=== PATIENT | female | born 1960 | race Caucasian/White ===

== ENCOUNTER → 2018-07-22 | Outpatient (CLI) | payer MEDICARE, OTHER ==
[2018-07-22 14:16] LABS: HCT 40.9 % (34.0-46.0); HGB 13.7 gm/dL (11.4-16.0); MCH 32.8 pg (25.0-35.0); MCHC 33.5 g/dL (31.0-37.0); Mean Platelet Volume 6.6; Platelet Count 336 k/uL (150-450); RBC 4.18 m/uL (3.80-5.40); RDW 11.7 % (11.5-15.5); WBC 8.6 k/uL (3.8-10.6)
[2018-07-22 14:26] LABS: Calcium 9.5 mg/dL (8.4-10.2); Total Bilirubin 0.3 mg/dL (0.2-1.3); Total Protein 6.9 g/dL (6.3-8.2)
[2018-07-22 14:36] LABS: Appearance,Urine Clear (Clear); Bilirubin,Urine Negative (Negative); Blood,Urine Negative (Negative); Color,Urine Light Yellow; Glucose,Urine (UA) Negative (Negative); Ketones,Urine Negative (Negative); Leukocyte Esterase,Urine Negative (Negative); Nitrite,Urine Negative (Negative); Protein,Urine Negative (Negative); Specific Gravity,Urine 1.007 (1.001-1.035); Urobilinogen,Urine <2.0 mg/dL (<2.0)
[2018-07-22 14:39] LABS: Prothrombin Time 10.2 sec (9.0-12.0)
== END | disposition home or self-care (01) ==
LOC: LABPAT 13:28
PROVIDERS: ATTEND Orthopaedic Surgery
DX: Z01.812 Encounter for preprocedural laboratory examination (principal); Z01.818 Encounter for other preprocedural examination
CPT/HCPCS: 36415; 80053; 81003; 85027; 85610; 85730; 87070; 93005

== ENCOUNTER 2018-07-28 05:31 | Inpatient (IN) | payer MEDICARE, OTHER ==
[2018-07-21 11:10] VITALS: BMI 28.3
[~2018-07-28 05:31] MED LIST: ACETAMINOPHEN TAB 500 MG TAB PO ONE; HYDROmorphone 0.5 MG/0.5 ML SYRINGE IVP PRN; LIDOCAINE 1% 20 ML VIAL (10MG/ML) FOR IV START INTRADERMA PRN; ONDANSETRON 4 MG/2 ML VIAL IVP ONE; TRANEXAMIC ACID 1,000 MG in SODIUM CHLORIDE 0.9% 50 ML IVPB ONE; ceFAZolin IN SWFI 2 GM/20 ML SYRINGE IVP ONE
[2018-07-28] MEDS ORDERED: ROPIVACAINE 246.25 MG, EPINEPHrine 0.5 MG, KETOROLAC 30 MG, cloNIDine HCL/PF 80 MCG, WA... MISCELLANE ONE ×5 (06:06)
[2018-07-28] MEDS ORDERED: LACTATED RINGERS 1,000 ML IV ONE ×2 (06:18→08:08)
[2018-07-28] MEDS ORDERED: MAGNESIUM HYDROXIDE 2,400 MG/10 ML CUP PO PRN (06:58)
[2018-07-28] MEDS ORDERED: HYDROcodone/APAP 5-325MG 1 EACH TAB PO PRN (06:58)
[2018-07-28] MEDS ORDERED: HYDROmorphone 1 MG/ML 1 ML SYRINGE IVP PRN ×3 (06:58)
[2018-07-28] MEDS ORDERED: ONDANSETRON 4 MG/2 ML VIAL IVP PRN (06:58)
[2018-07-28] MEDS ORDERED: DIAZEPAM 5 MG TAB PO PRN (06:58)
[2018-07-28] MEDS ORDERED: NALOXONE 0.4 MG/ML 1 ML VIAL IV PRN (06:58)
[2018-07-28] MEDS ORDERED: PHENYLEPHRINE-0.9% NACL SYG 1 MG/10 ML SYRINGE ONE (07:00)
[2018-07-28] MEDS ORDERED: SODIUM CHLORIDE 0.9% 100 ML BAG ONE (07:00)
[2018-07-28] MEDS ORDERED: SODIUM CHLORIDE 0.9% IRRIG 1,000 ML BTL IRRIGATION ONE (07:00)
[2018-07-28] MEDS ORDERED: MIDAZOLAM 2 MG/2 ML VIAL ONE (07:00)
[2018-07-28] MEDS ORDERED: ePHEDrine SULFATE/0.9% NACL/PF 50 MG/5 ML SYRINGE IV ONE (07:00)
[2018-07-28] MEDS ORDERED: HEPARIN SODIUM,PORCINE 10,000 UNIT/ML 1 ML VIAL ONE (07:00)
[2018-07-28] MEDS ORDERED: TRANEXAMIC ACID 1,000 MG/10 ML VIAL ONE (07:00)
[2018-07-28] MEDS ORDERED: PROPOFOL 10 MG/ML 20 ML VIAL IV ONE (07:00)
[2018-07-28] MEDS ORDERED: fentaNYL (PF) 50 MCG/ML 2 ML AMP ONE (07:00)
[2018-07-28] MEDS ORDERED: ceFAZolin 3,000 MG in SODIUM CHLORIDE 0.9% IRRIGATIO 3,000 ML IRRIGATION ONE (07:32)
--- NOTE | 2018-07-28 08:34 | P.OP ---
Date of Procedure: 07/28/18 Preoperative Diagnosis: Severe osteoarthritis right hip Postoperative Diagnosis: Severe osteoarthritis right hip Procedure(s) Performed: Right total hip arthroplasty with a direct anterior approach Implants: Brewer and nephew Polarstem size 3 standard Brewer [employer] Nephew R3, 3 hole acetabular shell, 50 mm Brewer [employer]hew reflection 6.5 mm cancellus screw, 20 mm 2 Brewer [employer] Nephew R3, XLPE 20 acetabular liner Brewer [employer] Nephew Oxinium femoral head 32 m, +0 All components were press-fit. The articulation is Oxinium on polyethylene. Anesthesia: spinal Surgeon: Ben Judge Wet Sander #1: Radha Pineda Estimated Blood Loss (ml): 150 (60 mL returned with Cell Saver) Pathology: other (Femoral head) Condition: stable Disposition: PACU Indications for Procedure: After failure of conservative treatment we discussed the surgical and nonsurgical treatment options at length. Patient wishes to proceed with a total hip arthroplasty with a direct anterior approach. Complications specific to this procedure were discussed at length, including but not limited to infection, leg length discrepancy, dislocation, and nerve injury. Patient is aware of all these complications and informed consent was obtained Operative Findings: The operative findings are consistent with severe osteoarthritis of the right hip Description of Procedure: Patient was seen and evaluated in the preoperative area, consent was reviewed, and the surgical site was marked with a skin marker. Patient was then brought to the operating room and given prophylactic antibiotics intravenously. 1 g of Tranexamic acid was also given. A spinal anesthetic was administered by the anesthesia department. The patient was then placed on the [place] table with the bony prominences well-padded. The hip area was then prepped and draped in usual sterile fashion. A universal timeout was then performed, which confirmed the patient's name, surgical site, ALLERGIES, and procedure being performed. Next the incision site was located at 1 cm distal and 1 cm lateral to the anterior superior iliac spine. The skin and subcutaneous tissues were sharply incised. Incision was carefully dissected down to the fascia overlying the tensor fascia jahaira muscle. This fascia was then incised in line with the incision. Next, using blunt finger dissection, the tensor fascia jahaira muscle was dissected off its investing fascia. The muscle was then carefully retracted laterally with a cobra retractor over the lateral neck of the femur. Next, the circumflex vessels were identified and cauterized using the AquaMantis device. The anterior hip capsule was then exposed. The capsule was then opened and an inverted T fashion. Cobra retractors were then placed intracapsularly. The proximal femur was then visualized. The femoral neck was then osteotomized appropriate level above the lesser trochanter. Small amount of traction was placed with the [place] table. A small wedge of bone was then removed from the remaining femoral head. Next, using a corkscrew femoral head was easily removed from the acetabulum. On gross visual inspection, the femoral head had complete loss of articular cartilage in multiple periarticular osteophytes. Attention was then turned to the acetabulum. the acetabulum was exposed and any remaining labrum was excised. Sequential reaming of the acetabulum was performed using fluoroscopic guidance. When the appropriate size was reached, a trial was then placed. The position and fit of the trial was checked with fluoroscopy. The trial was then removed. Then, using fluoroscopic guidance, the final implant was impacted at 20 of anteversion and 40 of abduction, and fully seated in the acetabulum. 2 screws were then placed in the acetabulum. Again fluoroscopy was used to check position of the screws. Next, the liner was then impacted, with a 20 elevated liner located in the anterior superior quadrant. Component locking was confirmed. Attention was then directed to the femur. With the aid of the [place] table, the femur was externally rotated to approximately 130, extended, and abducted under the opposite leg. A side hook was then placed under the proximal femur, and the side hook elevator was used to elevate the proximal femur. Retractors were then placed. A capsular release was performed, as well as a release of the conjoined tendon, which afforded excellent visualization of the proximal femur. Next, a box osteotome was used to lateralize the proximal femur. A hands parter was then used to locate the femoral canal. Sequential broaching was then performed with appropriate size which afforded excellent fixation in the proximal femur. A trial was then placed with appropriate head and neck, and the hip was gently reduced with the aid of the [place] table. Fluoroscopy was then used to check position of the components, as well as to ensure equal leg lengths. The hip was then gently dislocated and the trials were then removed. Final implants were then impacted and the hip was again reduced. Final fluoroscopic x-rays confirmed that the components were in anatomic position, as well as equal leg lengths. The hip was also taken through range of motion, and found to be stable. The hip was then copiously irrigated with antibiotic solution with pulsatile lavage. The hip was then irrigated with Irrisept solution. The soft tissues were then injected with a ropivacaine solution, which consisted of 246.25 mg of ropivacaine, 0.5 mg of epinephrine, 30 mg of Toradol, 80 g of clonidine, and 48.45 mL of sterile water, for a total of 100 mL of fluid injected. A second dose of 1 g of Tranexamic acid was also given. the fascia was then closed with 2-0 strata fix suture. The subcutaneous tissue was closed with 3-0 Vicryl. The subcuticular tissue was closed with 3-0 strata fix suture. The skin was then closed with Dermabond glue and a sterile silver dressing. The patient was then transferred to the recovery room in stable condition. The stylist assistant RASHAAD Sanders was required due to the complexity of surgery, and the need for skilled salesperson surgical appliances for positioning, draping, exposure, retraction, and closure of the wound.
--- NOTE | 2018-07-28 08:57 | XR ---
Limited right hip HISTORY: Right Hip arthroplasty 2 intraoperative C-arm images document the procedure.
[2018-07-28] MEDS: MORPHINE SULFATE 4 MG/ML SYRINGE IVP ONE ×2 (09:00→09:20)
--- NOTE | 2018-07-28 09:07 | XR ---
Right hip HISTORY: Status post right hip arthroplasty Single frontal view of the right hip Patient is status post right hip arthroplasty. There is anatomic alignment. Lucency in the soft tissu es is compatible with postop state. IMPRESSION: Orthopedic follow-up.
--- NOTE | 2018-07-28 09:08 | FL ---
Fluoroscopy HISTORY: Hip arthroplasty on the right 28 seconds fluoroscopy time supplied to the referring clinician. 2 intraoperative C-arm images docum ent the procedure. See dictated report from orthopedic surgery.
[2018-07-28] MEDS: LACTATED RINGERS 1,000 ML IV SCH (10:36)
[2018-07-28] MEDS: SODIUM CHLORIDE 0.9% 1,000 ML IV SCH (10:37)
[2018-07-28] MEDS ORDERED: SODIUM CHLORIDE 0.9% 500 ML IV ONE (11:40)
[2018-07-28] MEDS ORDERED: ALBUTEROL NEBULIZED 2.5 MG/3 ML INHALATION PRN (12:16)
--- NOTE | 2018-07-28 12:22 | P.CONS ---
History of Present Illness - Reason for Consult Consult date: 07/28/18 Medical management - History of Present Illness This is a 57-year-old female patient of Dr. Gardner with a past medical history of heart failure, probable diastolic, COPD, hypertension, alcoholic cirrhosis of the liver, tobacco use and dependence. Patient has been brought into the hospital in the care of Dr. Ben Judge status post anterior approach right total hip arthroplasty completed today. They're searching the blood pressure reading of 79/48 patient was asymptomatic and repeat was 112/72. Patient to be monitored and no fluid bolus at this time. She denies having any chest pain, lightheadedness. She does complain of her right leg hurting in her back is sore. She does have a hoarse sounding voice which she states is chronic. She also complains of nausea. Patient did have a stress test done by her anchorman, Dr. Camarena, prior to this procedure which apparently was normal. Review of Systems All systems: negative Constitutional: Denies chills, Denies fever Eyes: denies blurred vision, denies pain Ears, nose, mouth and throat: Denies headache, Denies sore throat, Denies vertigo Cardiovascular: Denies chest pain, Denies decreased exercise tolerance, Denies dyspnea on exertion, Denies leg edema, Denies lightheadedness, Denies shortness of breath, Denies syncope Respiratory: Denies congestion, Denies cough, Denies cough with sputum, Denies dyspnea, Denies excessive sputum, Denies hemoptysis, Denies home oxygen, Denies wheezing Gastrointestinal: Reports nausea, Denies abdominal pain, Denies diarrhea, Denies vomiting Genitourinary: Denies dysuria, Denies hematuria, Denies urgency, Denies urinary frequency Musculoskeletal: Reports low back pain, Denies frequent falls, Denies gait dysfunction, Denies myalgias Musculoskeletal: right: hip pain Integumentary: Denies pruritus, Denies rash Neurological: Denies numbness, Denies weakness Psychiatric: Denies anxiety, Denies depression Endocrine: Denies fatigue, Denies weight change Past Medical History Past Medical History: Heart Failure, COPD, GERD/Reflux, Hypertension, Liver Disease, Osteoarthritis (OA), Pneumonia, Renal Disease Additional Past Medical History / Comment(s): CHF 2011, R/T EXCESS ETOH HX; CIRRHOSIS AND KIDNEY DISEASE (STAGE 1). HX POLYP IN ESOPHAGUS. HAD STRESS TEST TODAY, F/U W/ CV 07/22/18. History of Any Multi-Drug Resistant Organisms: VRE Year Discovered:: 2011 MDRO Source:: UNSURE Past Surgical History: Orthopedic Surgery Additional Past Surgical History / Comment(s): COLONOSCOPY, EGD, right total hip anterior approach Past Anesthesia/Blood Transfusion Reactions: No Reported Reaction Past Psychological History: Anxiety, Depression Smoking Status: Current every day smoker Past Alcohol Use History: Rare Additional Past Alcohol Use History / Comment(s): SMOKING SINCE AGE 13, UP TO 1 PPD, DOWN TO 1/2 PPD NOW. HX HEAVY ETOH USE AFTER SON'S 2001. Patient has a nebulizer home but she does not use it. No CPAP machine. She does not use any device for ambulation. Past Drug Use History: Marijuana Additional Drug Use History / Comment(s): OCC USE ONLY - Past Family History Mother Brother(s) Family Medical History: Musculoskeletal Disorder Additional Family Medical History / Comment(s): Mother from MUSCULAR DYSTROPHY Father Additional Family Medical History / Comment(s): Father with history of heart failure, stroke and hypertension. Brother(s) Additional Family Medical History / Comment(s): Patient has 2 brothers and one from muscular dystrophy. One has been diagnosed with paranoid schizophrenia. Son(s) Additional Family Medical History / Comment(s): Patient has 2 sons and one from suicide and the other one has no medical problems. Patient does not have any daughters. Medications and Allergies Home Medications Medication Instructions Recorded Confirmed Type ALPRAZolam [Xanax] 0.5 mg PO BID PRN 07/21/18 07/28/18 History Albuterol Inhaler [Ventolin Hfa 1 - 2 puff INHALATION RT-Q6H PRN 07/21/18 History Inhaler] Calcium Carbonate/Vitamin D3 1 tab PO BID 07/21/18 07/28/18 History [Calcium 600-Vit D3 200 Tablet] Carvedilol [Coreg] 3.125 mg PO BID 07/21/18 07/28/18 History Cyclobenzaprine HCl 10 mg PO TID PRN 07/21/18 07/28/18 History Fluticasone Propionate 2 spray EA NOSTRIL DAILY 07/21/18 07/28/18 History Lisinopril [Zestril] 5 mg PO BID 07/21/18 07/28/18 History Magnesium Oxide [Mag-Ox] 400 mg PO DAILY 07/21/18 07/28/18 History Ranitidine HCl [Zantac] 150 mg PO BID 07/21/18 07/28/18 History Spironolactone [Aldactone] 25 mg PO BID 07/21/18 07/28/18 History Allergies Allergy/AdvReac Type Severity Reaction Status Date / Time ibuprofen AdvReac AVOIDS D/T Verified 07/21/18 10:25 KIDNEYS Physical Exam Vitals: Vital Signs Temp Pulse Pulse Resp BP Pulse Ox 07/28/18 09:16 63 18 112/60 97 07/28/18 09:00 55 L 18 109/60 97 07/28/18 08:41 97 F L 61 16 111/58 100 07/28/18 05:59 97.8 F 76 18 109/66 95 Intake and Output 07/27/18 07/28/18 07/28/18 22:59 06:59 14:59 Intake Total 200 1501 Output Total 150 Balance 200 1351 Intake: IV 200 1501 Output: Estimated Blood Loss 150 Gen: This is a 57-year-old overweight female. She is in bed and appears to be somewhat uncomfortable secondary to nausea and pain. No respiratory distress is noted. HEENT: Head is atraumatic, normocephalic. Pupils equal, round. Sclerae is anicteric. NECK: Supple. No JVD. No lymphadenopathy. No thyromegaly. LUNGS: Clear to auscultation. No wheezes or rhonchi. No intercostal retractions. HEART: Regular rate and rhythm. No murmur. ABDOMEN: Soft. Bowel sounds are present. No masses. No tenderness. EXTREMITIES: No pedal edema. No calf tenderness. Small dressing in place to the right hip. No breakthrough bleeding or drainage. NEUROLOGICAL: Patient is awake, alert and oriented x3. Cranial nerves 2 through 12 are grossly intact. Assessment and Plan Plan: 1. Osteoarthritis status post right total hip arthroplasty, anterior approach. Continue current management, PT and OT per orthopedics. Patient is on aspirin 325 mg twice daily for DVT prophylaxis. Incentive spirometry to reduce incidence of atelectasis and hospital-acquired pneumonia. 2. Tobacco use and dependence. Nicotine patch. 3. History of heart failure, most likely diastolic. Spironolactone will be started tomorrow. 4. History of hypertension. Patient is on lisinopril 5 mg twice daily and Coreg 3.125 mg twice daily. These will be resumed with parameters. 5. History of cirrhosis of the liver. Patient is on Aldactone 25 mg twice daily. 6. Gastroesophageal reflux disease. Continue Zantac or equivalent. 7. COPD, stable without exacerbation. Continue albuterol inhaler as needed. 8. Generalized anxiety disorder. Continue Xanax or 0.5 mg twice daily as needed. Discharge plan: Return home, most likely tomorrow. Impression and plan of care have been directed as dictated by the signing physician. Dejah Vera nurse practitioner acting as scribe for signing physician.
[2018-07-28] MEDS: NICOTINE 14MG/24HR PATCH TRANSDERM SCH (14:03)
[2018-07-28] MEDS: hydrOXYzine PAMOATE 25 MG CAP PO PRN ×2 (14:09→20:50)
[2018-07-28] MEDS: HYDROcodone/APAP 5-325MG 1 EACH TAB PO PRN (14:09)
[2018-07-28] MEDS: ceFAZolin IN SWFI 2 GM/20 ML SYRINGE IVP SCH ×2 (15:41→23:10)
[2018-07-28] MEDS: CARVEDILOL 3.125 MG TAB PO SCH (17:51)
[2018-07-28] MEDS: ASPIRIN 325 MG TAB PO SCH (20:50)
[2018-07-28] MEDS: SENNOSIDES-DOCUSATE SODIUM 1 EACH TAB PO SCH (20:50)
[2018-07-28] MEDS: ALPRAZolam 0.5 MG TAB PO PRN (23:11)
[2018-07-29] MEDS: HYDROcodone/APAP 5-325MG 1 EACH TAB PO PRN ×2 (02:19→08:15)
[2018-07-29] MEDS: hydrOXYzine PAMOATE 25 MG CAP PO PRN ×4 (02:19→19:24)
[2018-07-29 07:52] LABS: Basophils % (A) 0 %; Eosinophils # (A) 0.1 k/uL (0-0.7); Eosinophils % (A) 1 %; HCT 34.8 % (34.0-46.0); HGB 11.4 gm/dL (11.4-16.0); Lymphocytes # (A) 0.9 k/uL (1.0-4.8); Lymphocytes % (A) 11 %; MCH 32.9 pg (25.0-35.0); MCHC 32.9 g/dL (31.0-37.0); MCV 99.8 fL (80.0-100.0); Mean Platelet Volume 6.5; Monocytes # (A) 0.4 k/uL (0-1.0); Monocytes % (A) 6 %; Neutrophils % (A) 80 %; Platelet Count 298 k/uL (150-450); RBC 3.48 m/uL (3.80-5.40); RDW 11.9 % (11.5-15.5); WBC 7.5 k/uL (3.8-10.6)
[2018-07-29] MEDS: NICOTINE 14MG/24HR PATCH TRANSDERM SCH (08:14)
[2018-07-29] MEDS: FLUTICASONE 50MCG/SPRAY NASAL 16GM EA NOSTRIL SCH (08:14)
[2018-07-29] MEDS: LISINOPRIL 5 MG TAB PO SCH ×2 (08:14→21:13)
[2018-07-29] MEDS: ASPIRIN 325 MG TAB PO SCH ×2 (08:14→21:13)
[2018-07-29] MEDS: CARVEDILOL 3.125 MG TAB PO SCH ×2 (08:15→17:58)
[2018-07-29] MEDS: PANTOPRAZOLE 40 MG TABLET PO SCH (08:25)
[2018-07-29] MEDS ORDERED: HYDROcodone/APAP 7.5-325MG 1 EACH TAB PO PRN (08:58)
--- NOTE | 2018-07-29 09:02 | P.PN ---
Subjective Progress Note Date: 07/29/18 This is a 57-year-old female who is status post right total hip arthroplasty. This is postoperative day #1. Patient is seen and evaluated at bedside with Dr. Ben Judge. Patient does complain of pain today, but states that she has been up and walking throughout the night. Patient denies any fever/chills, numbness, weakness, tingling, abdominal pain, shortness of breath or chest pain. Objective - Vital Signs Vital signs: Vital Signs Temp 99 F 07/29/18 07:00 Pulse 85 07/29/18 07:00 Resp 16 07/29/18 07:00 BP 121/66 07/29/18 07:00 Pulse Ox 97 07/29/18 07:00 Intake & Output 07/28/18 07/29/18 07/29/18 18:59 06:59 18:59 Intake Total 2181 1890 240 Output Total 150 Balance 2031 1890 240 Intake: IV 1501 Intake, IV Titration 520 1040 Amount Sodium Chloride 0.9% 1, 520 1040 000 ml @ 65 mls/hr IV . [id number] [facility] Rx#:[id number] Oral 160 850 240 Output: Estimated Blood Loss 150 Other: Voiding Method Bedside Commode # Voids 1 4 - Exam Vital signs are stable. Patient is in no acute distress and is alert and oriented 3. Calf is soft and nontender to palpation. Dressing is clean, dry, and intact. Patient has full foot and ankle motion without pain or difficulty. Neurovascular status and circulatory status are intact. - Labs CBC & Chem 7: 07/29/18 06:31 Labs: Abnormal Lab Results - Last 24 Hours (Table) 07/29/18 Range/Units 06:31 RBC 3.48 L (3.80-5.40) m/uL Lymphocytes # 0.9 L (1.0-4.8) k/uL Assessment and Plan (1) Primary osteoarthritis of right hip Current Visit: Yes Status: Acute Code(s): M16.11 - UNILATERAL PRIMARY OSTEOARTHRITIS, RIGHT HIP SNOMED Code(s): 754862755 (2) S/P total hip arthroplasty Current Visit: Yes Status: Acute Code(s): Z96.649 - PRESENCE OF UNSPECIFIED ARTIFICIAL HIP JOINT SNOMED Code(s): 869258359603 Plan: Continue routine postop care. Continue antocoagulation. Weightbearing as tolerated with a walker. Leave dressing in place for 10 days. Likely discharge home tomorrow.
[2018-07-29] MEDS: LACTATED RINGERS 1,000 ML IV SCH (10:06)
[2018-07-29] MEDS: SODIUM CHLORIDE 0.9% 1,000 ML IV SCH (10:06)
[2018-07-29] MEDS: HYDROcodone/APAP 7.5-325MG 1 EACH TAB PO PRN ×2 (14:07→19:24)
--- NOTE | 2018-07-29 14:52 | P.PN ---
Subjective Progress Note Date: 07/29/18 This is a 57-year-old female patient of Dr. Gardner with a past medical history of heart failure, probable diastolic, COPD, hypertension, alcoholic cirrhosis of the liver, tobacco use and dependence. Patient has been brought into the hospital in the care of Dr. Ben Judge status post anterior approach right total hip arthroplasty completed today. They're searching the blood pressure reading of 79/48 patient was asymptomatic and repeat was 112/72. Patient to be monitored and no fluid bolus at this time. She denies having any chest pain, lightheadedness. She does complain of her right leg hurting in her back is sore. She does have a hoarse sounding voice which she states is chronic. She also complains of nausea. Patient did have a stress test done by her small lot operator, Dr. Herrera, prior to this procedure which apparently was normal. 07/29: Patient states that her pain is "horrible" today but she does state that she is ambulating in the hallway and done well with that and also getting up to the bathroom on her own. She denies having any lightheadedness and dizziness. Her blood pressure is higher today but within the normal range. Her home medications have been resumed with parameters for blood pressure medicine. Hemoglobin is stable at 11.4. Anticipate discharge home tomorrow. Objective - Vital Signs Vital signs: Vital Signs Temp 99 F 07/29/18 07:00 Pulse 85 07/29/18 07:00 Resp 16 07/29/18 07:00 BP 121/66 07/29/18 07:00 Pulse Ox 97 07/29/18 07:00 Intake & Output 07/28/18 07/29/18 07/29/18 18:59 06:59 18:59 Intake Total 2181 1890 240 Output Total 150 Balance 2031 1890 240 Intake: IV 1501 Intake, IV Titration 520 1040 Amount Sodium Chloride 0.9% 1, 520 1040 000 ml @ 65 mls/hr IV . [id number] [facility] Rx#:[id number] Oral 160 850 240 Output: Estimated Blood Loss 150 Other: Voiding Method Bedside Commode # Voids 1 4 - Exam Gen: This is a 57-year-old overweight female. She is in bed and appears to be comfortable and in no acute distress. No respiratory distress is noted. HEENT: Head is atraumatic, normocephalic. Pupils equal, round. Sclerae is anicteric. NECK: Supple. No JVD. No lymphadenopathy. No thyromegaly. LUNGS: Clear to auscultation. No wheezes or rhonchi. No intercostal retractions. HEART: Regular rate and rhythm. No murmur. ABDOMEN: Soft. Bowel sounds are present. No masses. No tenderness. EXTREMITIES: No pedal edema. No calf tenderness. Small dressing in place to the right hip. No breakthrough bleeding or drainage. NEUROLOGICAL: Patient is awake, alert and oriented x3. Cranial nerves 2 through 12 are grossly intact. - Labs CBC & Chem 7: 07/29/18 06:31 Labs: Abnormal Lab Results - Last 24 Hours (Table) 07/29/18 Range/Units 06:31 RBC 3.48 L (3.80-5.40) m/uL Lymphocytes # 0.9 L (1.0-4.8) k/uL Assessment and Plan Plan: 1. Osteoarthritis status post right total hip arthroplasty, anterior approach. Continue current management, PT and OT per orthopedics. Patient is on aspirin 325 mg twice daily for DVT prophylaxis. Incentive spirometry to reduce incidence of atelectasis and hospital-acquired pneumonia. 2. Tobacco use and dependence. Nicotine patch. 3. History of heart failure, most likely diastolic. Spironolactone will be started tomorrow. 4. History of hypertension. Patient is on lisinopril 5 mg twice daily and Coreg 3.125 mg twice daily. These will be resumed with parameters. 5. History of cirrhosis of the liver. Patient is on Aldactone 25 mg twice daily. 6. Gastroesophageal reflux disease. Continue Zantac or equivalent. 7. COPD, stable without exacerbation. Continue albuterol inhaler as needed. 8. Generalized anxiety disorder. Continue Xanax or 0.5 mg twice daily as needed. Discharge plan: Return home, most likely tomorrow. Impression and plan of care have been directed as dictated by the signing physician. Dejah Vera nurse practitioner acting as scribe for signing physician.
[2018-07-29] MEDS: ALPRAZolam 0.5 MG TAB PO PRN (15:11)
[2018-07-29] MEDS: SENNOSIDES-DOCUSATE SODIUM 1 EACH TAB PO SCH (21:13)
[2018-07-30] MEDS: HYDROcodone/APAP 7.5-325MG 1 EACH TAB PO PRN ×2 (03:11→09:42)
[2018-07-30] MEDS: hydrOXYzine PAMOATE 25 MG CAP PO PRN (03:12)
[2018-07-30] MEDS: SODIUM CHLORIDE 0.9% 1,000 ML IV SCH (07:13)
[2018-07-30 07:43] VITALS: BP 129/83; PULSE 77; RESP 12; TEMP 98.2
[2018-07-30 07:50] LABS: HCT 36.2 % (34.0-46.0); HGB 11.8 gm/dL (11.4-16.0); MCH 32.6 pg (25.0-35.0); MCHC 32.6 g/dL (31.0-37.0); MCV 100.1 fL (80.0-100.0); Mean Platelet Volume 6.5; Platelet Count 290 k/uL (150-450); RBC 3.61 m/uL (3.80-5.40); WBC 10.6 k/uL (3.8-10.6)
[2018-07-30 08:12] LABS: Anion Gap 8 mmol/L; Blood Urea Nitrogen 10 mg/dL (7-17); Calcium 8.9 mg/dL (8.4-10.2); Carbon Dioxide 22 mmol/L (22-30); Chloride 106 mmol/L (98-107); Glucose 97 mg/dL (74-99); Potassium 4.7 mmol/L (3.5-5.1); Sodium 136 mmol/L (137-145)
--- NOTE | 2018-07-30 09:08 | P.DS ---
Providers Date of admission: 07/28/18 05:31 Expected date of discharge: 07/30/18 Attending physician: Ben Judge Consults: 07/28/18 06:58 Consult Physician Routine Consulting Provider: Kisha Narvaez Consult Reason/Comments: medical management Do you want consulting provider notified?: Yes Primary care physician: Cory Dennison Kut - Discharge Diagnosis(es) (1) Primary osteoarthritis of right hip Current Visit: Yes Status: Acute (2) S/P total hip arthroplasty Current Visit: Yes Status: Acute Hospital Course: This is a 57-year-old female with known history of degenerative arthritis of the right hip. The patient presents for evaluation. After discussion and consideration patient elects to proceed with total hip arthroplasty. The patient is seen preoperatively by Dr. Judge and medically cleared for surgery by their primary care physician. Patient is admitted to [facility] on 07/28/2018 for total hip arthroplasty. The procedures performed without complication or sequelae. The patient is doing well postoperatively. Labs and vital signs are stable on day of discharge. On day of discharge patient's hip incision is healing well. There is minimal erythema. There is no drainage noted at this time. There is minimal soft tissue swelling to the hip and thigh. Patient has full foot and ankle motion without difficulty or pain. Neurovascular status to the right lower extremity is intact. Patient is discharged home in good condition. Please see med rec for accurate list of home medications. Plan - Discharge Summary Discharge Rx Participant: Yes New Discharge Prescriptions: New Aspirin 325 mg PO BID #60 tab HYDROcodone/APAP 7.5-325MG [[place] 7.5-325] 1 - 2 tab PO Q4-6H PRN #84 tab PRN Reason: Pain Sennosides [Senokot] 1 tab PO BID #60 tablet No Action Cyclobenzaprine HCl 10 mg PO TID PRN PRN Reason: Muscle Pain Ranitidine HCl [Zantac] 150 mg PO BID Magnesium Oxide [Mag-Ox] 400 mg PO DAILY Lisinopril [Zestril] 5 mg PO BID Fluticasone Propionate 2 spray EA NOSTRIL DAILY Spironolactone [Aldactone] 25 mg PO BID Carvedilol [Coreg] 3.125 mg PO BID Calcium Carbonate/Vitamin D3 [Calcium 600-Vit D3 200 Tablet] 1 tab PO BID ALPRAZolam [Xanax] 0.5 mg PO BID PRN PRN Reason: Anxiety Albuterol Inhaler [Ventolin Hfa Inhaler] 1 - 2 puff INHALATION RT-Q6H PRN PRN Reason: ASTHMA/BRONCHITIS SX Discharge Medication List ALPRAZolam [Xanax] 0.5 mg PO BID PRN 07/21/18 [History] Albuterol Inhaler [Ventolin Hfa Inhaler] 1 - 2 puff INHALATION RT-Q6H PRN [History] Calcium Carbonate/Vitamin D3 [Calcium 600-Vit D3 200 Tablet] 1 tab PO BID [History] Carvedilol [Coreg] 3.125 mg PO BID 07/21/18 [History] Cyclobenzaprine HCl 10 mg PO TID PRN 07/21/18 [History] Fluticasone Propionate 2 spray EA NOSTRIL DAILY 07/21/18 [History] Lisinopril [Zestril] 5 mg PO BID 07/21/18 [History] Magnesium Oxide [Mag-Ox] 400 mg PO DAILY 07/21/18 [History] Ranitidine HCl [Zantac] 150 mg PO BID 07/21/18 [History] Spironolactone [Aldactone] 25 mg PO BID 07/21/18 [History] Aspirin 325 mg PO BID #60 tab 07/30/18 [Rx] HYDROcodone/APAP 7.5-325MG [[place] 7.5-325] 1 - 2 tab PO Q4-6H PRN #84 tab [Rx] Sennosides [Senokot] 1 tab PO BID #60 tablet 07/30/18 [Rx] Follow up Appointment(s)/Referral(s): [facility], [NON-STAFF] - Ben Judge DO [Doctor of Osteopathic Medicine] - 08/13/18 1:30 pm Activity/Diet/Wound Care/Special Instructions: [facility] - [phone] - will deliver to bedside before discharge. Weightbearing as tolerated with walker Leave dressing intact. Dressing may be removed by home care nurse in 10 days. May shower with dressing on. Follow-up with [facility] in 2 weeks, please call with any questions or concerns [phone] Discharge Disposition: HOME WITH HOME HEALTH SERVICES
[2018-07-30] MEDS: NICOTINE 14MG/24HR PATCH TRANSDERM SCH (09:35)
[2018-07-30] MEDS: CARVEDILOL 3.125 MG TAB PO SCH (09:35)
[2018-07-30] MEDS: LISINOPRIL 5 MG TAB PO SCH (09:35)
[2018-07-30] MEDS: FLUTICASONE 50MCG/SPRAY NASAL 16GM EA NOSTRIL SCH (09:35)
[2018-07-30] MEDS: PANTOPRAZOLE 40 MG TABLET PO SCH (09:35)
[2018-07-30] MEDS: ASPIRIN 325 MG TAB PO SCH (09:36)
[2018-07-30] MEDS: ALPRAZolam 0.5 MG TAB PO PRN (10:59)
--- NOTE | 2018-07-30 14:29 | P.PN ---
Subjective Progress Note Date: 07/30/18 This is a 57-year-old female patient of Dr. Gardner with a past medical history of heart failure, probable diastolic, COPD, hypertension, alcoholic cirrhosis of the liver, tobacco use and dependence. Patient has been brought into the hospital in the care of Dr. Ben Judge status post anterior approach right total hip arthroplasty completed today. They're searching the blood pressure reading of 79/48 patient was asymptomatic and repeat was 112/72. Patient to be monitored and no fluid bolus at this time. She denies having any chest pain, lightheadedness. She does complain of her right leg hurting in her back is sore. She does have a hoarse sounding voice which she states is chronic. She also complains of nausea. Patient did have a stress test done by her traffic control operator, Dr. Herrera, prior to this procedure which apparently was normal. 07/29: Patient states that her pain is "horrible" today but she does state that she is ambulating in the hallway and done well with that and also getting up to the bathroom on her own. She denies having any lightheadedness and dizziness. Her blood pressure is higher today but within the normal range. Her home medications have been resumed with parameters for blood pressure medicine. Hemoglobin is stable at 11.4. Anticipate discharge home tomorrow. 07/30: Patient is feeling much improved from yesterday. She is having problems with insomnia for which she has been taking xanax. Patient encouraged to take melatonin to help with sleep and only uses Xanax for anxiety attacks. Patient is scheduled for discharge home today. Objective - Vital Signs Vital signs: Vital Signs Temp 98.2 F 07/30/18 07:00 Pulse 77 07/30/18 07:00 Resp 12 07/30/18 07:00 BP 129/83 07/30/18 07:00 Pulse Ox 100 07/30/18 07:00 Intake & Output 07/29/18 07/30/18 07/30/18 18:59 06:59 18:59 Intake Total 720 480 Balance 720 480 Intake: Oral 720 480 Other: Voiding Method Bedside Commode # Voids 3 3 - Exam Gen: This is a 57-year-old overweight female. She is in bed and appears to be comfortable and in no acute distress. No respiratory distress is noted. HEENT: Head is atraumatic, normocephalic. Pupils equal, round. Sclerae is anicteric. NECK: Supple. No JVD. No lymphadenopathy. No thyromegaly. LUNGS: Clear to auscultation. No wheezes or rhonchi. No intercostal retractions. HEART: Regular rate and rhythm. No murmur. ABDOMEN: Soft. Bowel sounds are present. No masses. No tenderness. EXTREMITIES: No pedal edema. No calf tenderness. Small dressing in place to the right hip. No breakthrough bleeding or drainage. NEUROLOGICAL: Patient is awake, alert and oriented x3. Cranial nerves 2 through 12 are grossly intact. - Labs CBC & Chem 7: 07/30/18 06:39 07/30/18 06:39 Labs: Abnormal Lab Results - Last 24 Hours (Table) 07/30/18 07/30/18 Range/Units 06:39 06:39 RBC 3.61 L (3.80-5.40) m/uL MCV 100.1 H (80.0-100.0) fL Sodium 136 L (137-145) mmol/L Assessment and Plan Plan: 1. Osteoarthritis status post right total hip arthroplasty, anterior approach. Continue current management, PT and OT per orthopedics. Patient is on aspirin 325 mg twice daily for DVT prophylaxis. Incentive spirometry to reduce incidence of atelectasis and hospital-acquired pneumonia. 2. Tobacco use and dependence. Nicotine patch. 3. History of heart failure, most likely diastolic. Spironolactone will be started tomorrow. 4. History of hypertension. Patient is on lisinopril 5 mg twice daily and Coreg 3.125 mg twice daily. These will be resumed with parameters. 5. History of cirrhosis of the liver. Patient is on Aldactone 25 mg twice daily. 6. Gastroesophageal reflux disease. Continue Zantac or equivalent. 7. COPD, stable without exacerbation. Continue albuterol inhaler as needed. 8. Generalized anxiety disorder. Continue Xanax or 0.5 mg twice daily as needed. Discharge plan: Return home with [facility]. Impression and plan of care have been directed as dictated by the signing physician. Dejah Vera nurse practitioner acting as scribe for signing physician.
== END 2018-07-30 14:12 | disposition home health service (06) | DRG 470 ==
LOC: 2ORMAIN 05:31 → 3SUR 08:51
PROVIDERS: ADMIT Orthopaedic Surgery; ATTEND Orthopaedic Surgery
PROC: 30233N0 Transfusion of Autologous Red Blood Cells into Peripheral Vein, Percutaneous Approach (ICD-10-PCS; 2018-07-28)
PROC: 0SR906A Replacement of Right Hip Joint with Oxidized Zirconium on Polyethylene Synthetic Substitute, Uncemented, Open Approach (ICD-10-PCS; principal; 2018-07-28 07:00)
DX: M16.11 Unilateral primary osteoarthritis, right hip (principal); I50.32 Chronic diastolic (congestive) heart failure; I11.0 Hypertensive heart disease with heart failure; K70.30 Alcoholic cirrhosis of liver without ascites; F41.1 Generalized anxiety disorder; G47.00 Insomnia, unspecified; J44.9 Chronic obstructive pulmonary disease, unspecified; K21.9 Gastro-esophageal reflux disease without esophagitis; F32.9 Major depressive disorder, single episode, unspecified; F17.210 Nicotine dependence, cigarettes, uncomplicated; M85.80 Other specified disorders of bone density and structure, unspecified site; N28.9 Disorder of kidney and ureter, unspecified; R49.0 Dysphonia; E66.3 Overweight; Z68.28 Body mass index [BMI] 28.0-28.9, adult; Z87.01 Personal history of pneumonia (recurrent); Z88.6 Allergy status to analgesic agent; Z79.899 Other long term (current) drug therapy; Z82.49 Family history of ischemic heart disease and other diseases of the circulatory system; Z82.3 Family history of stroke; Z81.8 Family history of other mental and behavioral disorders; Z86.39 Personal history of other endocrine, nutritional and metabolic disease
CPT/HCPCS: 73501; 80048; 85025; 85027; 86850; 86891; 86900; 86901; 88300